=== PATIENT | female | born 2005 | race Hispanic/Latino ===

== ENCOUNTER 2024-01-10 12:49 | Emergency (ER) | payer OTHER, BC ==
[~2024-01-10] VITALS: Ht 160 cm; Wt 88.5 kg
[2024-01-10] MEDS: methoCARBamol 500 MG TABLET PO STA (13:47)
[2024-01-10] MEDS: acetaMINOPHEN 325 MG TAB PO STA (13:47)
[2024-01-10 14:55] VITALS: BP 127/65; PULSE 78; RESP 16; TEMP 97.9; O2SAT 99
== END 2024-01-10 14:57 | disposition home or self-care (01) ==
LOC: EDH 12:49
DX: S50.12XA Contusion of left forearm, initial encounter (principal); S80.11XA Contusion of right lower leg, initial encounter; V89.2XXA Person injured in unspecified motor-vehicle accident, traffic, initial encounter; Y93.89 Activity, other specified; Y92.89 Other specified places as the place of occurrence of the external cause; Y99.8 Other external cause status
CPT/HCPCS: 70450; 71045; 73090; 73590